=== PATIENT | female | born 1950 | race Two or more races ===

== ENCOUNTER 2020-11-13 16:01 | Emergency (ER) | payer OTHER ==
[~2020-11-13] VITALS: Ht 157.5 cm; Wt 72.6 kg
[2020-11-13] MEDS ORDERED: PROTONIX40 M1 PO (16:30)
[2020-11-13] MEDS ORDERED: LORAZEPAM2 MG/1 M3 IJ (16:30)
[2020-11-13] MEDS ORDERED: SERTRALINE HCL100 MG PO (16:30)
[2020-11-13] MEDS ORDERED: LOVAZA1 GM PO (16:31)
[2020-11-13] MEDS ORDERED: PEPCID AC20 MG PO (16:31)
[2020-11-13] MEDS ORDERED: LEVOTHYROXINE25 MCG PO (16:31)
[2020-11-13] MEDS ORDERED: LIPITOR20 MG (16:31)
[2020-11-13] MEDS ORDERED: VITAMIN A AND1 EACH PO (16:32)
== END 2020-11-14 02:04 | disposition home or self-care (01) ==
LOC: ER 16:01
DX: K52.89 Other specified noninfective gastroenteritis and colitis (principal); E86.0 Dehydration; R10.13 Epigastric pain; R06.02 Shortness of breath; F41.8 Other specified anxiety disorders; Z03.818 Encounter for observation for suspected exposure to other biological agents ruled out